=== PATIENT | male | born 1950 | race Caucasian/White ===

== ENCOUNTER 2020-12-27 10:20 | Outpatient (CLI) | payer MEDICARE, BC ==
[2020-12-28 02:35] LABS: SARS-CoV-2 PCR by NAA Not Detected (NotDetected)
== END 2020-12-27 10:21 | disposition home or self-care (01) ==
LOC: LABBT 10:20
PROVIDERS: ATTEND Ophthalmology Retina Specialist
DX: H35.89 Other specified retinal disorders (principal); Z20.822 Contact with and (suspected) exposure to COVID-19
CPT/HCPCS: U0003; U0005; 87635

== ENCOUNTER 2021-01-01 06:33 | Day surgery (SDC) | payer MEDICARE, BC ==
[2020-12-31 13:54] VITALS: BMI 30.4
[~2021-01-01 06:33] MED LIST: EPINEPHrine 0.3 MG in Ophthalmic Irrigation Solution 500 ML IRR SCH
[2021-01-01] MEDS ORDERED: Midazolam HCl 2 mg/2 ml Vial ONE (06:34)
[2021-01-01] MEDS ORDERED: Fentanyl 100 MCG/2 ML VIAL ONE (06:34)
[2021-01-01] MEDS ORDERED: PROPOFOL 20 ML ONE (06:35)
[2021-01-01] MEDS ORDERED: Cyclopentolate 1% Opth Drop 2 ML BOT ONE (07:08)
[2021-01-01] MEDS ORDERED: Phenylephrine 2.5% Ophth Soln 5 ML BOT ONE (07:09)
[2021-01-01] MEDS ORDERED: Bupivacaine PF 0.75% SDV 10 ML ONE (10:08)
[2021-01-01] MEDS ORDERED: Triamcinolone 40 MG/ML VIAL ONE (10:08)
[2021-01-01] MEDS ORDERED: Maxitrol 0.1% Opth Oint 3.5 GM TUBE ONE (10:08)
[2021-01-01] MEDS ORDERED: CEFAZOLIN 1 GM VIAL ONE (10:08)
[2021-01-01] MEDS ORDERED: Lidocaine 1% PF 5 ML VIAL ONE (10:08)
[2021-01-01] MEDS ORDERED: Lidocaine 4% PF 5 ML AMP ONE (10:08)
[2021-01-01] MEDS ORDERED: Indocyanine Green 25 MG/10 ML VIAL ONE (10:08)
== END 2021-01-01 09:15 | disposition home or self-care (01) ==
LOC: SDC 06:33
PROVIDERS: ATTEND Ophthalmology Retina Specialist
PROC: 08T43ZZ Resection of Right Vitreous, Percutaneous Approach (ICD-10-PCS; principal; 2021-01-01)
PROC: 08NE3ZZ Release Right Retina, Percutaneous Approach (ICD-10-PCS; 2021-01-01)
DX: H35.341 Macular cyst, hole, or pseudohole, right eye (principal); I10 Essential (primary) hypertension; E78.5 Hyperlipidemia, unspecified; I25.10 Atherosclerotic heart disease of native coronary artery without angina pectoris; M19.90 Unspecified osteoarthritis, unspecified site; F17.200 Nicotine dependence, unspecified, uncomplicated; Z79.82 Long term (current) use of aspirin; Z79.84 Long term (current) use of oral hypoglycemic drugs; Z79.899 Other long term (current) drug therapy; Z88.1 Allergy status to other antibiotic agents; Z88.6 Allergy status to analgesic agent; Z95.1 Presence of aortocoronary bypass graft; Z95.5 Presence of coronary angioplasty implant and graft
CPT/HCPCS: 67025; J0171; J0690; J2250; J2704; J3010; J3301; J3490

== ENCOUNTER 2021-03-14 09:56 | Outpatient (CLI) | payer MEDICARE, BC ==
[2021-03-14 18:31] LABS: SARS-CoV-2 PCR by NAA Not Detected (NotDetected)
== END 2021-03-14 09:57 | disposition home or self-care (01) ==
LOC: LABBT 09:56
PROVIDERS: ATTEND Ophthalmology Retina Specialist
DX: Z01.812 Encounter for preprocedural laboratory examination (principal); H35.81 Retinal edema; Z20.822 Contact with and (suspected) exposure to COVID-19
CPT/HCPCS: U0003; U0005; 87635

== ENCOUNTER 2021-03-19 06:19 | Day surgery (SDC) | payer MEDICARE, BC ==
[2021-03-18 11:54] VITALS: BMI 29.6
[2021-03-19] MEDS ORDERED: Midazolam HCl 2 mg/2 ml Vial ONE (06:29)
[2021-03-19] MEDS ORDERED: Fentanyl 100 MCG/2 ML VIAL ONE (06:29)
[2021-03-19] MEDS ORDERED: Cyclopentolate 1% Opth Drop 2 ML BOT ONE (08:22)
[2021-03-19] MEDS ORDERED: Phenylephrine 2.5% Ophth Soln 5 ML BOT ONE (08:22)
[2021-03-19] MEDS ORDERED: Bupivacaine PF 0.75% SDV 10 ML ONE (08:49)
[2021-03-19] MEDS ORDERED: Indocyanine Green 25 MG/10 ML VIAL ONE (08:49)
[2021-03-19] MEDS ORDERED: PROPOFOL 200 MG/20 ML VIAL ONE (08:49)
[2021-03-19] MEDS ORDERED: Lidocaine 4% PF 5 ML AMP ONE (08:49)
[2021-03-19] MEDS ORDERED: Lidocaine 1% PF 5 ML VIAL ONE (08:49)
[2021-03-19] MEDS ORDERED: CEFAZOLIN 1 GM VIAL ONE (08:49)
[2021-03-19] MEDS ORDERED: Maxitrol 0.1% Opth Oint 3.5 GM TUBE ONE (08:49)
[2021-03-19] MEDS ORDERED: Triamcinolone 40 MG/ML VIAL ONE (08:49)
== END 2021-03-19 10:00 | disposition home or self-care (01) ==
LOC: SDC 06:19
PROVIDERS: ATTEND Ophthalmology Retina Specialist
PROC: 08T43ZZ Resection of Right Vitreous, Percutaneous Approach (ICD-10-PCS; principal; 2021-03-19)
PROC: 08NE3ZZ Release Right Retina, Percutaneous Approach (ICD-10-PCS; 2021-03-19)
DX: H35.341 Macular cyst, hole, or pseudohole, right eye (principal); Z79.82 Long term (current) use of aspirin; Z79.84 Long term (current) use of oral hypoglycemic drugs; Z79.899 Other long term (current) drug therapy; Z88.1 Allergy status to other antibiotic agents; Z88.6 Allergy status to analgesic agent; Z95.1 Presence of aortocoronary bypass graft; Z95.5 Presence of coronary angioplasty implant and graft
CPT/HCPCS: 67025; J0171; J0690; J2250; J2704; J3010; J3301; J3490